=== PATIENT | female | born 1955 | race Caucasian/White ===

== ENCOUNTER → 2018-05-02 08:36 | Outpatient (REF) | payer BC, SELFPAY ==
[2018-05-02 14:07] LABS: ALT 61 U/L (12-78); AST 49 U/L (15-37); Albumin 3.7 g/dL (3.4-5.0); Alkaline Phosphatase 100 U/L (46-116); Anion Gap 5.5 mmol/L (3-11); BUN 15 mg/dL (7-18); Bilirubin, Total 0.6 mg/dL (0.2-1.0); CO2 29.5 mmol/L (21.0-32.0); CREATININE 0.77 mg/dL (0.55-1.02); Calcium 8.8 mg/dL (8.5-10.1); Chloride 105 mmol/L (98-107); Glucose 87 mg/dL (70-100); Potassium 4.4 mmol/L (3.5-5.1); Sodium 140 mmol/L (136-145); TSH (W/Ref FT4) 2.57 uIU/mL (0.358-3.74)
== END ==
LOC: NCHCN 08:36
PROVIDERS: PCP Nurse Practitioner Family; Visit Provider Nurse Practitioner Family
DX: E03.9 Hypothyroidism, unspecified (principal); I10 Essential (primary) hypertension
CPT/HCPCS: 80053; 84443

== ENCOUNTER 2018-11-10 09:40 | Outpatient (CLI) | payer BC, SELFPAY ==
[2018-11-10 11:38] LABS: Cholesterol 168 mg/dL (50-200); HDL Cholesterol 71 mg/dL (40-60); LDL CHOLESTEROL 82 mg/dL (<100); Triglyceride 65 mg/dL (30-150)
== END 2018-11-10 10:00 ==
PROVIDERS: PCP Nurse Practitioner Family; Visit Provider Internal Medicine Cardiovascular Disease
DX: I25.10 Atherosclerotic heart disease of native coronary artery without angina pectoris (principal)
CPT/HCPCS: 36415; 80061; 83721

== ENCOUNTER 2019-06-04 00:31 | Outpatient (CLI) | payer BC, SELFPAY ==
--- NOTE | 2019-06-04 16:06 | DI.MAMMO_ITS ---
EXAM: MG MAMMO SCREENING CLINICAL HISTORY: SCREENING, Z12.31. TECHNIQUE: Mammograms were interpreted according to the usual protocol including computer analysis w Replise CAD system, tomosynthesis and C-view imaging. COMPARISON: Comparison with prior examinations. FINDINGS: The breast tissue is of moderate radiodensity. There is no evidence of a mass and there are no suspic ious calcifications. There has been no significant interval change when compared with prior images. IMPRESSION: No evidence of malignancy, Category 1, yearly screening mammography is recommended. Breast density Ca tegory B. BI-RADS Cat 1 - Negative Breast Density - Category B - Scattered areas of fibroglandular density
== END 2019-06-04 00:51 ==
PROVIDERS: PCP Nurse Practitioner Family; Visit Provider Nurse Practitioner Family
DX: Z12.31 Encounter for screening mammogram for malignant neoplasm of breast (principal)
CPT/HCPCS: 77063; 77067

== ENCOUNTER 2019-08-06 09:00 | Outpatient (REF) | payer BC, SELFPAY ==
[2019-08-06 14:02] LABS: ALT 80 U/L (14-59); AST 74 U/L (15-37); Albumin 3.9 g/dL (3.4-5.0); Alkaline Phosphatase 104 U/L (46-116); Anion Gap 7.2 mmol/L (3-11); BUN 12 mg/dL (7-18); Bilirubin, Total 0.6 mg/dL (0.2-1.0); CO2 28.8 mmol/L (21.0-32.0); Calculated LDL 81 mg/dL; Chloride 106 mmol/L (98-107); Cholesterol 175 mg/dL (<200); Glucose 92 mg/dL (74-106); HDL Cholesterol 87 mg/dL (40-60); Potassium 4.1 mmol/L (3.5-5.1); Sodium 142 mmol/L (136-145); Total Protein 7.2 g/dL (6.4-8.2); Triglyceride 37 mg/dL (<150)
[2019-08-06 14:23] LABS: HCT 42.9 % (36.0-46.0); HGB 14.3 g/dL (12.0-15.5); Mean Corp. HGB Concentration 33.3 g/dL (32.0-36.0); Mean Corpuscular Volume 99.1 fL (80-95); Platelet Count 264 x1000/uL (130-400); RBC 4.33 m/cumm (4.00-5.20); RBC Distribution Width 12.5 % (11.7-14.6); White Blood Cell Count 4.62 k/cumm (4.4-10.8)
[2019-08-06 14:33] LABS: PROTEIN 18.5 mg/dL
[2019-08-06 14:36] LABS: COMMENT (LAB VIEW ONLY) 117.01 mg/dL; Microalb ug/mg Crea 15.3 ug/mg Cr
[2019-08-06 14:39] LABS: Bacteria Moderate HPF (Negative); C & S Indicated? No/Sq. Contamination; Crystals Few Calcium Oxalate HPF (Negative); Epithelial Cells Moderate HPF (Negative); Mucus Trace (Negative)
[2019-08-06 14:42] LABS: COMMENT (LAB VIEW ONLY) 115.32 mg/dL; Prot/Crea Ur Ratio 0.16
[2019-08-06 14:47] LABS: TSH (W/Ref FT4) 3.11 uIU/mL (0.36-3.74)
== END 2019-08-06 09:20 ==
LOC: NCHCN 09:00
PROVIDERS: PCP Nurse Practitioner Family; Visit Provider Nurse Practitioner Family
DX: Z00.00 Encounter for general adult medical examination without abnormal findings (principal); I25.10 Atherosclerotic heart disease of native coronary artery without angina pectoris; E03.9 Hypothyroidism, unspecified; I10 Essential (primary) hypertension
CPT/HCPCS: 80053; 80061; 85027; 81015; 82043; 82565; 82570; 84156; 84443

== ENCOUNTER 2020-04-29 08:13 | Outpatient (REF) | payer BC, SELFPAY ==
[2020-04-29 20:01] LABS: Calculated LDL 80 mg/dL (<100); Cholesterol 171 mg/dL (<200); HDL Cholesterol 82 mg/dL (40-60); Triglyceride 46 mg/dL (<150)
== END 2020-04-29 08:33 ==
LOC: NCHCN 08:13
PROVIDERS: PCP Nurse Practitioner Family; Visit Provider Nurse Practitioner Family
DX: I25.10 Atherosclerotic heart disease of native coronary artery without angina pectoris (principal)
CPT/HCPCS: 80061

== ENCOUNTER 2020-07-11 13:36 | Outpatient (REF) | payer BC, SELFPAY ==
[2020-07-11 20:13] LABS: Bilirubin Negative (Negative); Blood Negative (Negative); Clarity Clear (Clear); Glucose Negative (Negative); Ketones Negative (Negative); Leukocyte Esterase Trace (Negative); Nitrite Negative (Negative); Specific Gravity 1.025 (1.005-1.025)
[2020-07-11 20:17] LABS: Creatinine,Urine 107.09 mg/dL; PROTEIN 17.2 mg/dL
[2020-07-11 20:18] LABS: COMMENT (LAB VIEW ONLY) 108.12 mg/dL; Microalb ug/mg Crea 29.8 ug/mg Cr
[2020-07-11 20:30] LABS: COMMENT (LAB VIEW ONLY) 108.92 mg/dL; Prot/Crea Ur Ratio 0.15
[2020-07-11 20:32] LABS: BUN 11 mg/dL (7-18); Calcium 8.8 mg/dL (8.5-10.1); Chloride 105 mmol/L (98-107); Glucose 89 mg/dL (74-106); Sodium 141 mmol/L (136-145); TSH (W/Ref FT4) 2.67 uIU/mL (0.36-3.74)
[2020-07-11 20:37] LABS: Bacteria Few HPF (Negative); C & S Indicated? C&S Done As Ordered; Casts Negative LPF (Negative); Crystals Negative HPF (Negative); Epithelial Cells Few HPF (Negative); Mucus Trace (Negative)
== END 2020-07-11 13:56 ==
LOC: NCHCN 13:36
PROVIDERS: PCP Nurse Practitioner Family; Visit Provider Nurse Practitioner Family
DX: I10 Essential (primary) hypertension (principal); R35.0 Frequency of micturition
CPT/HCPCS: 80048; 81003; 81015; 82043; 82565; 82570; 84156; 84443; 87086

== ENCOUNTER 2020-07-14 02:18 | Outpatient (CLI) | payer BC, SELFPAY ==
--- NOTE | 2020-07-14 | DI.US_ITS ---
EXAM: US RENAL CLINICAL HISTORY: RECURRENT NEPHROLITHIASIS,N20.0,LT HYDRONEPHROSIS,N13.30. TECHNIQUE: Arambula scale, color and spectral Doppler were used. COMPARISON: No exams were available for comparison FINDINGS: Renal size in cm: Right: 11.3. Left: 9.4. Echogenicity: Normal. Hydronephrosis: No. Cyst or mass: No. Nephrolithiasis: Nonobstructing stones are present in the left kidney. The largest measures 0.5 cm. Other findings: None. Bladder:Normal. Ureteral jets: Right: Visualized and unremarkable. Left: Visualized and unremarkable. Prevoid vol:66 cc Postvoid vol:1 cc Renal color flow: Symmetric and within normal limits. IMPRESSION: Left nephrolithiasis. No hydronephrosis. DATA REPOSITORY:
== END 2020-07-14 02:38 ==
PROVIDERS: PCP Nurse Practitioner Family; Visit Provider Nurse Practitioner Family
DX: N20.0 Calculus of kidney (principal)
CPT/HCPCS: 76770

== ENCOUNTER 2020-08-01 18:22 | Outpatient (REF) | payer BC, SELFPAY ==
[2020-08-04 09:30] LABS: Patient Race White; SARS-CoV-2 RNA Undetected (Undetected); SARS-CoV-2 Specimen Source Nasal
== END 2020-08-01 18:42 ==
LOC: NCHCN 18:22
PROVIDERS: PCP Nurse Practitioner Family; Visit Provider Nurse Practitioner Family
DX: Z20.828 Contact with and (suspected) exposure to other viral communicable diseases (principal)
CPT/HCPCS: U0003

== ENCOUNTER 2020-10-13 11:43 | Outpatient (REF) | payer BC, SELFPAY ==
[2020-10-13 14:24] LABS: Calculated LDL 63 mg/dL (<100); Cholesterol 157 mg/dL (<200); HDL Cholesterol 82 mg/dL (40-60); Triglyceride 61 mg/dL (<150)
== END 2020-10-13 12:03 ==
LOC: NCHCN 11:43
PROVIDERS: PCP Nurse Practitioner Family; Visit Provider Nurse Practitioner Family
DX: I25.10 Atherosclerotic heart disease of native coronary artery without angina pectoris (principal)
CPT/HCPCS: 80061

== ENCOUNTER 2021-01-26 06:32 | Day surgery (SDC) | payer BC, SELFPAY ==
--- NOTE | 2021-01-26 06:12 | ANES.PREOP_ITS ---
General Info Date of Service Date Performed: 01/26/21 Height: 5 ft 8 in Weight: 71.668 kg Body Mass Index (BMI): 24.0 Surgical Procedure: Operation Date: 01/26/21 07:40 Proposed Procedures Side Surgeon p Intraocular Stent Placement/IOL Implant Right Babatunde Montoya MD Meds Allergies and Home Medications Allergies Allergy/AdvReac Type Severity Reaction Status Date / Time No Known Allergies Allergy Unverified 01/26/21 06:54 Home Medication Medication Instructions Recorded levalbuterol tartrate [Xopenex HFA] 2 puff INHALATION PRN 05/30/14 levothyroxine [Synthroid] 25 mcg PO DAILY 05/30/14 aspirin [Aspir-81] 81 mg PO DAILY tab-cap 10/25/16 atorvastatin [Lipitor] 80 mg PO DAILY tab-cap 10/25/16 lisinopril 10 mg PO DAILY tab-cap 10/25/16 nitroglycerin [Nitrostat] 0.4 mg BUCCAL PRN tab-cap 10/25/16 budesonide-formoterol [Symbicort] 2 puff INHALATION BID 01/21/21 ezetimibe 10 mg PO DAILY 01/21/21 latanoprost 1 drp OPHTHALMIC (EYE) HS 01/21/21 losartan 50 mg PO DAILY 01/21/21 [facility] Medical History Medical History Allergic asthma with acute exacerbation Controlled moderate persistent allergic asthma Coronary artery disease f/u with cardiology regularly 10/2020 last visit Glaucoma HTN (hypertension) Hydronephrosis, left Hypothyroidism Recurrent nephrolithiasis Urinary frequency Surgical History Surgical History (Updated 01/26/21 @ 06:54 by Caroline Borden) Colonoscopy - IV Sedation (12/21/16) Coronary Stent 2015 Hx of cataract surgery Kidney Stone Extraction Tobacco Smoking/Tobacco Use Status: Former Tobacco Use Alcohol Alcohol Intake: current Alcohol intake frequency: holidays/special occasions only Substance Use Substance use: Never Substance use type: does not use Vital Signs and Lab Results Vital Signs Most Recent Vital Signs in EMR: Temp Pulse Resp BP Pulse Ox 37.1 C 83 16 149/81 H 99 01/26/21 06:59 01/26/21 06:59 01/26/21 06:59 01/26/21 06:59 05/17/21 06:59 Lab Results Blood Type / Crossmatch: No Data to Display Complete Blood Count: No Data to Display Complete Metabolic Panel: No Data to Display Liver Function Panel: No Data to Display Coagulation Panel: No Data to Display Cardiac Panel: No Data to Display Arterial Blood Gas: No Data to Display Venous Blood Gas: No Data to Display Pancreas Panel: No Data to Display Thyroid Panel: No Data to Display Infectious Disease: No Data to Display Blood Cultures: No Data to Display Toxicology Panel: No Data to Display Imaging and Studies Imaging and Studies Pulmonary Function Summary: 2013: Severe obstructive airways disease with no significant bronchodilator response. There is mild diffusion defect which is normal when corrected to alveolar volume. Anesthesia Assessment and Plan Anesthesia History Personal History: No History of Anesthesia Complications Family History: No Family History of Anesthesia Complications Exercise Tolerance Exercise Tolerance: Metabolic Equivalents>4 Cardiac & Pulmonary Exam Cardiac Exam: Normal S1/S2 Heart Sounds Pulmonary Exam: Clear Bilateral Breath Sounds Airway Exam Known Difficult Airway: No Mallampati Class: 2 Mouth Opening: Normal (> 3cm) Thyromental Distance: Greater than 3 cm Neck Range of Motion: Full ROM Neck Circumference: Normal Teeth Condition: Normal Dentition ASA Classification ASA Score: ASA 3 Emergency Case?: No NPO Status NPO Status: NPO Clears >2 hours, Solids >8 hours Anesthesia Plan Resuscitation Status: Full Code Anesthesia Technique: MAC Anesthesia Airway Planned: Natural Airway Monitors Used: Standard Monitors Preoperative Comments:: history of 2 stent placements ~ 10 years ago. no issues since, unable to find.
[2021-01-26] MEDS: Tropicam./Phenyleph. (1/2.5%) 5 ML BTL OP ×3 (06:53→07:06)
[2021-01-26 06:59] VITALS: BP 149/81; PULSE 83; RESP 16; TEMP 37.1; O2SAT 99
[2021-01-26 07:17] VITALS: BMI 24.0
[2021-01-26] MEDS: Lidocaine 1% Pres-Free 5 ML VIAL (07:35)
[2021-01-26] MEDS: Balanced Salt Soln.-PLUS 500 ML BAG (07:35)
[2021-01-26] MEDS: Lidocaine 2% Jelly 6 ML SYR (07:36)
[2021-01-26] MEDS: Povidone-Iodine Ophth 30 ML BTL (07:37)
[2021-01-26] MEDS: Duovisc Viscoelastic System EACH 1 EACH (07:37)
[2021-01-26] MEDS: Tetracaine 0.5% 4 ML BTL OP (07:38)
[2021-01-26 08:00] VITALS: BP 142/79; PULSE 77; RESP 18; TEMP 36.8; O2SAT 96
--- NOTE | 2021-01-26 08:34 | W.ANESPOSTOP ---
Postoperative Evaluation Date, Time and Location Date Performed: 01/26/21 Time Performed: 08:16 Patient Location: Day Surgery Unit Vital Signs Most Recent Imported Vital Signs: Most Recent Vital Signs Temp Pulse Resp BP Pulse Ox 37.1 C 83 16 149/81 H 99 01/26/21 06:59 01/26/21 06:59 01/26/21 06:59 01/26/21 06:59 01/26/21 06:59 Most Recent Manually Entered Vital Signs: Adult Blood Pressure: 135/82 Heart Rate: 82 Respirations: 11 Oxygen Saturation (%): 96 Temperature (C): 36.8 C Pain Score (0-10 Scale): 0 Pain Score Most Recent Pain Score: Most Recent Pain Score Pain Level 0 01/26/21 06:59 Assessment Mental Status: Awake (Alert & Oriented to Patient Baseline) Airway and Respiratory Function: Patent airway with normal (patient baseline) respiratory exam Cardiovascular Function: Hemodynamically Stable Hydration Status: Adequately Hydrated Nausea & Vomiting: No Nausea or Vomiting Pain: Pt. Denies Any Pain Peripheral Nerve Block: Patient did not receive a nerve block
[2021-01-26 08:36] VITALS: BP 135/82; PULSE 82; RESP 11; TEMPC 36.8; O2SAT 96
[2021-01-26 09:44] VITALS: BP 147/79; PULSE 76; RESP 18; TEMP 36.7; O2SAT 98
--- NOTE | 2021-01-26 11:54 | W.PM.DSUDISC ---
Discharge Plan Disposition Patient Disposition: HOME Condition: Improving Discharge Details Attending Provider: Babatunde Montoya Primary Care Provider: Ramos Queen Home Meds and New Rx's Prescriptions: No Action atorvastatin [Lipitor] 80 MG tablet 80 mg PO DAILY RF: 0 aspirin [Aspir-81] 81 MG tablet,delayed release (DR/EC) 81 mg PO DAILY RF: 0 lisinopril 10 MG tablet 10 mg PO DAILY RF: 0 nitroglycerin [Nitrostat] 0.4 MG tablet, sublingual 0.4 mg Buccal PRN RF: 0 levothyroxine [Synthroid] 25 MCG tablet 25 mcg PO DAILY RF: 0 levalbuterol tartrate [Xopenex HFA] 200 PUFF HFA aerosol inhaler 2 puff Inhalation PRN RF: 0 losartan 50 mg tablet 50 mg PO DAILY RF: 0 ezetimibe 10 mg tablet 10 mg PO DAILY RF: 0 budesonide-formoterol [Symbicort] 160-4.5 mcg/actuation HFA aerosol inhaler 2 puff INHALATION BID RF: 0 latanoprost 0.005 % drops 1 drp ophthalmic (eye) HS RF: 0 Discharge Instructions Stand Alone Forms: Post-op Block Cataract, Post-op Topical Cataract, Press Ganey (DSU) Discharge Orders Discharge Orders: Discharge Order (Routine); Ordered 01/26/21 Ordered By: Babatunde Montoya DS: Diagnosis Discharge Diagnosis (1) Cortical cataract of right eye: Status: Acute (2) Nuclear sclerotic cataract of right eye: Status: Acute
--- NOTE | 2021-01-26 11:55 | ROE_ITS ---
Date of service: 01/26/21 Time of Service: 11:55 Operative Note Operative Note DATE OF PROCEDURE: 01/26/21 PRE-OP DIAGNOSIS: Nuclear/cortical cataract, right eye History of narrow angles, status post laser iridotomy Narrow angle glaucoma, right eye POST-OP DIAGNOSIS: same PROCEDURE: Cataract extraction using phacoemulsification, right eye Procedure aborted prior to cortical cleanup due to flat chamber/elevated intraocular pressure. SURGEON: Babatunde Montoya ANESTHESIA TYPE: Local By Surgeon and MAC Refer to Anesthesia Record ESTIMATED BLOOD LOSS: 0 PATHOLOGY: none sent COMPLICATIONS: Other (Development of flat anterior chamber with elevated posterior pressure prior to cortical cleanup. Procedure was aborted prior to cortical cleanup and lens insertion.) Patient was transported to: same day Patient's condition: stable Implants: No intraocular lens implant placed Indications: Progressive decreased vision due to cataract, right eye Procedure Description: CATARACT SURGERY OPERATIVE REPORT PREOPERATIVE DIAGNOSIS: Nuclear/cortical cataract, right eye History of narrow angle glaucoma, status post laser peripheral iridotomy History of elevated intraocular pressure in the 30s, prior to laser iridotomy and topical glaucoma medications, right eye POSTOPERATIVE DIAGNOSIS: Same OPERATION: Cataract extraction using phacoemulsification with posterior chamber intraocular lens implant, right eye. IOL: No IOL was placed PHACO INFO: Noah [employer]ion Vision System with OZil and Active Fluidics Cumulative Dispersed Energy (CDE): 6.86 seconds SURGEON: Babatunde Montoya MD, RELL ANESTHESIA: Monitored Anesthesia Care (MAC), with local sub-tenon's anesthetic infiltration COMPLICATIONS: Severe elevation of posterior pressure/intraocular pressure with development of flat chamber prior to cortical cleanup. Procedure was aborted SPECIMENS: None INDICATIONS FOR PROCEDURE: The patient is a 65-year-old lady with history of narrow anterior chamber angles and significant elevated intraocular pressure in the right eye. Untreated intraocular pressure in the right eye in the mid 30s. Following laser iridotomy and topical glaucoma medications intraocular pressure has been significantly better, in the low 20s. She has very thin central corneas. She has previously undergone cataract extraction with lens implantation in the left eye in 2019 in [place]. That eye is doing very well. The option of cataract surgery in the right eye was offered to the patient and she wished to proceed. In addition, the option of trabecular micro-bypass stent placement at the time of cataract surgery was offered to the patient and she wished to proceed. PROCEDURE: The correct surgical eye was identified and marked as the right eye and the pupil was dilated in the preoperative area using mydriatics and cycloplegics. The dilated pupil size was 6.5 mm. Oral sedation was administered in the form of an Imprimis MKO Melt (midazolam 3mg/ketamine 25mg/ondansetron 2mg). The patient was brought to the operating room where cardiopulmonary monitoring was instituted and surgical time-out was performed, confirming the correct operative eye and IOL power. Topical anesthesia was administered and ophthalmic povidone-iodine 5% was instilled into the conjunctival fornices. Lidocaine gel was applied to the cornea and the caity-ocular area was prepped with Betadine 10% solution and draped in the usual sterile fashion for intraocular surgery, including an aperture drape. A Tegaderm transparent film dressing was cut in half and used to cover the lashes and lid margins. Care was taken to sequester the lashes and lid margins under the Tegaderm dressing. A lid speculum was placed between the lids of the operative eye and the Judson-Dinesh operating microscope was maneuvered into position. Paty scissors were then used to make a conjunctival buttonhole approximately 6mm posterior to the limbus in the inferonasal quadrant. Blunt dissection was carried out to expose bare sclera, and a blunt-tipped sub-tenon?s anesthesia cannula was introduced and passed posteriorly along the globe where non- preserved plain lidocaine was injected into posterior sub-Tenon?s space. A sideport knife was used to make a paracentesis port inferiortemporally. Intraocular phenylephrine/lidocaine was injected into the anterior chamber. The anterior chamber was then filled with viscoelastic. Noah Viscoat was used, which resulted in adequate deepening of the shallow anterior chamber. A 2.4mm keratome knife was used to create a half-thickness groove at the limbus and then to construct a three-plane near-clear corneal tunnel extending 2.0mm into clear cornea in the superiortemporal position. . A flap was raised on the anterior capsule and capsulorhexis forceps were used to complete a continuous curvilinear capsulorhexis of 5.0 mm. Balanced salt solution was then used to perform cortical cleaving hydrodissection and nuclear hydrodelineation until the lens could be freely rotated within the capsular bag. The lens nucleus was then disassembled and removed within the capsular bag and iris plane using phacoemulsification. Phacoemulsification was uneventful and the anterior chamber was noted to be of adequate depth. When switching to the irrigation/aspiration handpiece for cortical cleanup, it was noted that the anterior chamber was becoming increasingly shallow and the eye was becoming firm. Insertion of the eye/a handpiece did not result in any deepening of the anterior chamber. The wounds were stromally hydrated and found to be secure. We waited several minutes, but the eye remained very firm with a shallow anterior chamber. The decision was made to abort surgery prior to cortical cleanup and insertion of lens implant. 0.1 cc of moxifloxacin 1.0 mg/mL were injected into the anterior chamber for antibiotic prophylaxis. The incisions were checked with a Weck spear and found to be secure. Several drops of ophthalmic povidone-iodine 5% were then applied to the eye followed by two drops of Imprimis combination prednisolone/moxifloxacin/nepafenac solution. The drapes were removed and a clear plastic protective eye shield was placed over the eye. The patient was then returned to Same Day Surgery, where an infusion of IV mannitol was begun. Intraocular pressure measured 32 iCare initially at 8:16am. .. After mannitol 50 g IV intraocular pressure measured 49 at 9:30 am.. Another 50 g of mannitol were then infused over the next hour, after which the intraocular pressure remained at 40-49 at 10:18am. Approximately 45 minutes later the intraocular pressure was 4ad 10:59am, and approximately 45 minutes after that the intraocular pressure had reduced to 41 at 11:50am.. It was determined at that point due to the reducing trend of intraocular pressure it was safe to release the patient, but she will follow-up in the office in approximately 4 hours for reevaluation.
[2021-01-26 12:02] VITALS: BP 136/82; PULSE 65; RESP 18; TEMP 36.6; O2SAT 98
== END 2021-01-26 12:30 | disposition home or self-care (01) ==
PROVIDERS: PCP Nurse Practitioner Family; Visit Provider Ophthalmology
PROC: (CPT 66984; principal; 2021-01-26 07:30)
DX: H25.11 Age-related nuclear cataract, right eye (principal); Z53.09 Procedure and treatment not carried out because of other contraindication; H40.051 Ocular hypertension, right eye
CPT/HCPCS: 66984; 96365; 96366

== ENCOUNTER 2021-03-23 19:03 | Outpatient (REF) | payer BC, SELFPAY ==
[2021-03-25 14:14] LABS: COVID-19 RT-PCR UVMMC Result Negative (Negative)
== END 2021-03-23 19:04 | disposition home or self-care (01) ==
LOC: NCHCN 19:03
PROVIDERS: PCP Nurse Practitioner Family; Visit Provider Nurse Practitioner Family
DX: J06.9 Acute upper respiratory infection, unspecified (principal); Z20.822 Contact with and (suspected) exposure to COVID-19
CPT/HCPCS: U0003

== ENCOUNTER 2021-04-29 08:20 | Outpatient (REF) | payer BC, SELFPAY ==
[2021-04-29 14:23] LABS: Calculated LDL 59 mg/dL (<100); Cholesterol 150 mg/dL (<200); HDL Cholesterol 83 mg/dL (40-60); Triglyceride 41 mg/dL (<150)
== END 2021-04-29 08:21 | disposition home or self-care (01) ==
LOC: LBN 08:20
PROVIDERS: PCP Nurse Practitioner Family; Visit Provider Physician Assistant
DX: I25.10 Atherosclerotic heart disease of native coronary artery without angina pectoris (principal)
CPT/HCPCS: 80061

== ENCOUNTER 2021-06-17 01:03 | Outpatient (CLI) | payer BC, SELFPAY ==
--- NOTE | 2021-06-17 | DI.MAMMO_ITS ---
Exam(s) MAMMO SCREENING EXAM: MAMMO SCREENING CLINICAL HISTORY: SCREENING, Z12.31 TECHNIQUE: Bilateral full field digital CC and MLO mammographic images were obtained with 3D tomosyn thesis and utilizing computer aided detection (CAD). COMPARISON: Available for comparison. FINDINGS: Masses/Architectural Distortion: None seen. Microcalcifications: No suspicious pleomorphic-type are seen. Skin Thickening/Nipple Retraction: None. IMPRESSION: 1. No significant interval change with no specific features of malignancy noted. 2. Unless there is more urgent need, screening mammography is recommended, as per [employer] guidelines. BI-RADS Category 1 - Negative Breast Density - Category B - Scattered areas of fibroglandular density Breast density category C or D implies that the patient has dense breast tissue. Dense breast tissue is very common and is not abnormal but dense breast tissue can make it harder to find cancer on a ma mmogram. Also, dense breast tissue may increase their breast cancer risk. This information about the result of the mammogram report was provided to the patient to raise their awareness. Use this report when you speak with the patient about their risks for breast cancer, which includes their family hist ory. At that time, you may recommend for more screening tests (Ultrasound or MRI) as they might be us eful based on their risk. A negative radiographic report should not delay biopsy if a dominant or clinically suspicious mass is present. Up to ten percent of cancers are not identified on mammography. A negative report may reinforce clinical impression. Adenosis and dense breasts may obscure an underlying neoplasm. False positive reports average 6 to 10%. Patient will receive a letter notifying them of these results.
== END 2021-06-17 01:04 | disposition home or self-care (01) ==
LOC: DI 04:15 → LBN 18:41
PROVIDERS: PCP Physician Assistant; Visit Provider Physician Assistant
DX: Z12.31 Encounter for screening mammogram for malignant neoplasm of breast (principal)
CPT/HCPCS: 77063; 77067

== ENCOUNTER 2021-11-10 19:08 | Outpatient (REF) | payer BC, SELFPAY ==
[2021-11-10 20:42] LABS: Abs Immature Grans 0.02 10^3/uL (0.0-0.06); Absolute Basophil Count 0.02 10^3/uL (0.0-0.2); Absolute Eosinophil Count 0.05 10^3/uL (0.0-0.7); Absolute Lymphocyte Count 1.86 10^3/uL (1.2-3.4); Absolute Monocyte Count 0.41 10^3/uL (0.1-0.8); Absolute Neutrophil Count 3.89 10^3/uL (1.2-6.7); Basophils % 0.3; Eosinophils % 0.8; HGB 13.7 g/dL (11.2-15.7); Immature Grans % 0.3; Lymphocytes % 29.8; MCH 32.7 pg (27.0-33.0); MCHC 33.4 % (32.0-36.0); MCV 97.9 fL (80-95); MPV 8.8 fL (8.0-11.0); Monocytes % 6.6; Neutrophils % 62.2; Nucleated RBC 0 %; Platelet Count 260 10^3/uL (130-400); RBC 4.19 10^6/uL (3.93-5.22); RDW 12.3 % (11.7-14.6); RDW-SD 44.5 fL; WBC 6.25 10^3/uL (4.4-10.8)
[2021-11-13 10:05] LABS: IgE <2 IU/mL (<158)
== END 2021-11-10 19:09 | disposition home or self-care (01) ==
LOC: LBN 19:08
PROVIDERS: Visit Provider Student in an Organized Health Care Education/Training Program
DX: J45.909 Unspecified asthma, uncomplicated (principal)
CPT/HCPCS: 82785; 85025

== ENCOUNTER 2021-11-17 18:03 | Outpatient (REF) | payer BC, SELFPAY ==
--- NOTE | 2021-11-17 15:47 | PAPFT_PTH ---
PATIENT: Rebecca Carlson LOC: [facility]#:[id number] AGE/SX: 66/F ROOM: RE11/17/[address]: Shawn Stein : 1955 BED: DIS: 11/17/2021 SPEC #: [id number] RECD: 11/17/21 18:14 STATUS: JHON REQ #: [id number] SAHARA: 11/17/21 15:[address]: Shawn Stein DEPT: [facility] Cytology RECD BY: Leanna Mccarthy ENTERED: 11/17/21 18:14 SP TYPE: PAPFT ORDNEY DR: Unknown,Unknown Tissues: 1 - CX/ENDOCX FOR PAP SMEARS Procedures: PAP THIN PREP/[facility] Screening HPV DNA PROBE Comments: [id number]
== END 2021-11-17 18:04 | disposition home or self-care (01) ==
LOC: NCHCN 18:03
PROVIDERS: Visit Provider Physician Assistant
DX: Z12.4 Encounter for screening for malignant neoplasm of cervix (principal); Z11.51 Encounter for screening for human papillomavirus (HPV)
CPT/HCPCS: 88142; 87624

== ENCOUNTER 2021-12-09 01:41 | Outpatient (CLI) | payer BC, SELFPAY ==
--- NOTE | 2021-12-09 14:30 | DI.DEXA_ITS ---
Exam(s) XR DEXA BONE DENSITY W/WO STEFANIE EXAM: XR DEXA BONE DENSITY W/WO STEFANIE CLINICAL HISTORY: OSTEOPENIA, M85.80, F/U 2017 DEXA TECHNIQUE: COMPARISON: No exams were available for comparison FINDINGS: DEXA scan was performed according to the usual protocol. Please see the accompanying data sheets. F indings for left hip scanning are T-score -2.1 with left femoral neck T-score -2.8. Prior examinatio n of 2017 showed left hip T-score -1.2. Lumbar spine scanning shows T-score -1.3, prior examination of 2017 showed lumbar T-score -1.0. Left forearm scanning shows T-score -3.9, prior examination showed T-score -2.7. Lateral vertebral scanogram shows no evidence of vertebral compression fracture. IMPRESSION: Findings consistent with osteoporosis according to the WHO criteria. RADIATION DOSE DELIVERED: Total DLP
== END 2021-12-09 02:01 ==
PROVIDERS: Visit Provider Physician Assistant
DX: Z13.820 Encounter for screening for osteoporosis (principal); M81.0 Age-related osteoporosis without current pathological fracture
CPT/HCPCS: 77080

== ENCOUNTER 2022-05-14 08:11 | Outpatient (REF) | payer BC, SELFPAY ==
[2022-05-14 18:03] LABS: Anion Gap 7.2 mmol/L (3-11); BUN 11 mg/dL (7-18); CO2 28.8 mmol/L (21.0-32.0); CREATININE 0.7 mg/dL (0.55-1.02); Calcium 8.6 mg/dL (8.5-10.1); Calculated LDL 63 mg/dL (<100); Chloride 109 mmol/L (98-107); Cholesterol 149 mg/dL (<200); Estimated GFR 95.32 (mL/min/1.73m2); Glucose 97 mg/dL (74-106); HDL Cholesterol 75 mg/dL (40-60); Potassium 4.2 mmol/L (3.5-5.1); Sodium 145 mmol/L (136-145); TSH 2.95 uIU/mL (0.36-3.74); Triglyceride 58 mg/dL (<150)
== END 2022-05-14 08:12 | disposition home or self-care (01) ==
LOC: NCHCN 08:11
PROVIDERS: Visit Provider Physician Assistant
DX: E03.9 Hypothyroidism, unspecified (principal); I10 Essential (primary) hypertension; I25.10 Atherosclerotic heart disease of native coronary artery without angina pectoris
CPT/HCPCS: 80048; 80061; 84443

== ENCOUNTER → 2022-08-18 02:14 | Outpatient (CLI) | payer BC, SELFPAY ==
--- NOTE | 2022-08-18 18:00 | DI.MAMMO_ITS ---
Exam(s) MAMMO SCREENING EXAM: MAMMO SCREENING CLINICAL HISTORY: SCREENING, Z12.39 TECHNIQUE: Bilateral full field digital CC and MLO mammographic images were obtained with 3D tomosyn thesis and utilizing computer aided detection (CAD). COMPARISON: Available for comparison. FINDINGS: Masses/Architectural Distortion: None seen. Microcalcifications: No suspicious pleomorphic-type are seen. Skin Thickening/Nipple Retraction: None. IMPRESSION: 1. No significant interval change with no specific features of malignancy noted. 2. Unless there is more urgent need, screening mammography is recommended, as per [employer] guidelines. BI-RADS Category 1 - Negative Breast Density - Category B - Scattered areas of fibroglandular density Breast density category C or D implies that the patient has dense breast tissue. Dense breast tissue is very common and is not abnormal but dense breast tissue can make it harder to find cancer on a ma mmogram. Also, dense breast tissue may increase their breast cancer risk. This information about the result of the mammogram report was provided to the patient to raise their awareness. Use this report when you speak with the patient about their risks for breast cancer, which includes their family hist ory. At that time, you may recommend for more screening tests (Ultrasound or MRI) as they might be us eful based on their risk. A negative radiographic report should not delay biopsy if a dominant or clinically suspicious mass is present. Up to ten percent of cancers are not identified on mammography. A negative report may reinforce clinical impression. Adenosis and dense breasts may obscure an underlying neoplasm. False positive reports average 6 to 10%. Patient will receive a letter notifying them of these results.
== END ==
PROVIDERS: Visit Provider Physician Assistant
DX: Z12.31 Encounter for screening mammogram for malignant neoplasm of breast (principal)
CPT/HCPCS: 77063; 77067

== ENCOUNTER 2023-05-18 09:30 | Outpatient (REF) | payer BC, SELFPAY ==
[2023-05-18 16:06] LABS: AST 21 U/L (15-37); Albumin 3.5 g/dL (3.4-5.0); Alkaline Phosphatase 76 U/L (46-116); Anion Gap 5.8 mmol/L (3-11); BUN 14 mg/dL (7-18); Bilirubin, Total 0.7 mg/dL (0.2-1.0); CO2 30.2 mmol/L (21.0-32.0); CREATININE 0.9 mg/dL (0.55-1.02); Calcium 9.4 mg/dL (8.5-10.1); Calculated LDL 62 mg/dL (<100); Chloride 104 mmol/L (98-107); Cholesterol 152 mg/dL (<200); Estimated GFR 70.07 (mL/min/1.73m2); Glucose 105 mg/dL (74-106); HDL Cholesterol 82 mg/dL (40-60); Potassium 4.1 mmol/L (3.5-5.1); Sodium 140 mmol/L (136-145); TSH 3.26 uIU/mL (0.36-3.74); Total Protein 6.6 g/dL (6.4-8.2); Triglyceride 43 mg/dL (<150)
[2023-05-18 16:38] LABS: ALT 23 U/L (14-59)
== END 2023-05-18 09:31 | disposition home or self-care (01) ==
LOC: NCHCN 09:30
PROVIDERS: PCP Physician Assistant; Visit Provider Physician Assistant
DX: E03.9 Hypothyroidism, unspecified (principal); I25.10 Atherosclerotic heart disease of native coronary artery without angina pectoris
CPT/HCPCS: 80053; 80061; 84443

== ENCOUNTER 2023-06-21 16:46 | Outpatient (REF) | payer BC, SELFPAY ==
[2023-06-21 20:42] LABS: Source Nasal/Nares
[2023-06-21 21:28] LABS: COVID-19 PCR Negative (Negative)
== END 2023-06-21 16:47 | disposition home or self-care (01) ==
LOC: LBN 16:46
PROVIDERS: PCP Physician Assistant; Visit Provider Nurse Practitioner Family
DX: R05.8 Other specified cough (principal)
CPT/HCPCS: 87635

== ENCOUNTER → 2023-08-24 01:37 | Outpatient (CLI) | payer BC, SELFPAY ==
--- NOTE | 2023-08-24 16:20 | DI.MAMMO_ITS ---
Exam(s) MAMMO SCREENING EXAM: MAMMO SCREENING CLINICAL HISTORY: SCREENING MAMMO Z12.31 TECHNIQUE: Bilateral full field digital CC and MLO mammographic images were obtained with 3D tomosyn thesis and utilizing computer aided detection (CAD). COMPARISON: Available for comparison. FINDINGS: Masses/Architectural Distortion: There has been slight interval increase in size of a nodule in the i nferior right breast which now measures 3-4 mm. It is best appreciated on the MLO view. No areas of architectural distortion are seen. Microcalcifications: No suspicious pleomorphic-type are seen. Skin Thickening/Nipple Retraction: None. IMPRESSION: 1. Increase in size of a nodule in inferior right breast. 2. Follow-up with spot compression view is recommended. Limited right breast ultrasound may be indic ated at that time. BI-RADS Category 0 - Assessment Incomplete: Need additional imaging evaluation Breast Density - Category B - Scattered areas of fibroglandular density Breast density category C or D implies that the patient has dense breast tissue. Dense breast tissue is very common and is not abnormal but dense breast tissue can make it harder to find cancer on a ma mmogram. Also, dense breast tissue may increase their breast cancer risk. This information about the result of the mammogram report was provided to the patient to raise their awareness. Use this report when you speak with the patient about their risks for breast cancer, which includes their family hist ory. At that time, you may recommend for more screening tests (Ultrasound or MRI) as they might be us eful based on their risk. A negative radiographic report should not delay biopsy if a dominant or clinically suspicious mass is present. Up to ten percent of cancers are not identified on mammography. A negative report may reinforce clinical impression. Adenosis and dense breasts may obscure an underlying neoplasm. False positive reports average 6 to 10%. Patient will receive a letter notifying them of these results.
== END ==
PROVIDERS: PCP Physician Assistant; Visit Provider Physician Assistant
DX: Z12.31 Encounter for screening mammogram for malignant neoplasm of breast (principal); R92.8 Other abnormal and inconclusive findings on diagnostic imaging of breast
CPT/HCPCS: 77063; 77067

== ENCOUNTER → 2023-08-26 00:35 | Outpatient (CLI) | payer BC, SELFPAY ==
--- NOTE | 2023-08-26 | DI.MAMMO_ITS ---
Exam(s) MAMMO SCREEN CALL BACK UNI EXAM: MAMMO SCREEN CALL BACK UNI CLINICAL HISTORY: F/U MAMMO,INCREASE IN SIZE OF NODULE,R92.8 TECHNIQUE: Spot compression views with tomographic imaging were performed. COMPARISON: 24 August 2023 and exams back to 2013 FINDINGS: The area of nodularity in question on the recent mammogram corresponds to a skin mole.No suspicious m asses or suspicious microcalcifications are seen. IMPRESSION: BI-RADS Category 1, Negative Yearly screening mammography is recommended. Breast Density - Category B, scattered fibroglandular densities.
== END ==
PROVIDERS: PCP Physician Assistant; Visit Provider Physician Assistant
DX: Z12.31 Encounter for screening mammogram for malignant neoplasm of breast (principal); R92.8 Other abnormal and inconclusive findings on diagnostic imaging of breast
CPT/HCPCS: 77063; 77067

== ENCOUNTER 2024-05-21 13:05 | Outpatient (REF) | payer BC, SELFPAY ==
[2024-05-21 16:02] LABS: HCT 40.1 % (36.0-46.0); HGB 13.3 g/dL (11.2-15.7); MCH 33.2 pg (27.0-33.0); MCHC 33.2 % (32.0-36.0); MCV 100 fL (80-95); MPV 8.7 fL (8.0-11.0); Platelet Count 268 10^3/uL (130-400); RBC 4.01 10^6/uL (3.93-5.22); RDW 12.4 % (11.7-14.6); RDW-SD 45.8 fL; WBC 4.93 10^3/uL (4.4-10.8)
[2024-05-21 16:25] LABS: ALT 24 U/L (14-59); AST 28 U/L (15-37); Albumin 3.6 g/dL (3.4-5.0); Alkaline Phosphatase 71 U/L (46-116); Anion Gap 6.3 mmol/L (3-11); BUN 10 mg/dL (7-18); Bilirubin, Total 0.76 mg/dL (0.2-1.0); CO2 28.7 mmol/L (21.0-32.0); CREATININE 0.8 mg/dL (0.55-1.02); Calcium 8.7 mg/dL (8.5-10.1); Calculated LDL 65 mg/dL (<100); Chloride 106 mmol/L (98-107); Cholesterol 165 mg/dL (<200); Estimated GFR 80.21 (mL/min/1.73m2); Glucose 93 mg/dL (74-106); HDL Cholesterol 88 mg/dL (40-60); Potassium 4.2 mmol/L (3.5-5.1); Sodium 141 mmol/L (136-145); TSH 2.32 uIU/Ml (0.36-3.74); Total Protein 6.5 g/dL (6.4-8.2); Triglyceride 61 mg/dL (<150)
== END 2024-05-21 13:06 | disposition home or self-care (01) ==
LOC: NCHCN 13:05
PROVIDERS: PCP Physician Assistant; Visit Provider Physician Assistant
DX: E03.9 Hypothyroidism, unspecified (principal); I10 Essential (primary) hypertension; I25.10 Atherosclerotic heart disease of native coronary artery without angina pectoris
CPT/HCPCS: 80053; 80061; 85027; 84443

== ENCOUNTER 2024-09-17 02:10 | Outpatient (CLI) | payer BC, SELFPAY ==
--- NOTE | 2024-09-17 08:15 | DI.MAMMO_ITS ---
Exam(s) MAMMO SCREENING EXAM: MAMMO SCREENING CLINICAL HISTORY: SCREENING, Z12.31 TECHNIQUE: Bilateral full field digital CC and MLO mammographic images were obtained with 3D tomosyn thesis and utilizing computer aided detection (CAD). COMPARISON: Available for comparison. FINDINGS: Masses/Architectural Distortion: Interval increase in size of a well-circumscribed nodule in the medi al right breast measuring 3-4 mm. No areas of architectural distortion are present. Microcalcifications: No suspicious pleomorphic-type are seen. Skin Thickening/Nipple Retraction: None. IMPRESSION: 1. Interval increase in size of a nodule in the medial right breast. 2. Spot-compression and targeted the right breast ultrasound is requested. BI-RADS Category 0 - Incomplete: Need additional imaging evaluation Breast Density - Category B - Scattered areas of fibroglandular density Breast density category C or D implies that the patient has dense breast tissue. Dense breast tissue is very common and is not abnormal but dense breast tissue can make it harder to find cancer on a ma mmogram. Also, dense breast tissue may increase their breast cancer risk. This information about the result of the mammogram report was provided to the patient to raise their awareness. Use this report when you speak with the patient about their risks for breast cancer, which includes their family hist ory. At that time, you may recommend for more screening tests (Ultrasound or MRI) as they might be us eful based on their risk. A negative radiographic report should not delay biopsy if a dominant or clinically suspicious mass is present. Up to ten percent of cancers are not identified on mammography. A negative report may reinforce clinical impression. Adenosis and dense breasts may obscure an underlying neoplasm. False positive reports average 6 to 10%. Patient will receive a letter notifying them of these results.
== END 2024-09-17 02:30 ==
LOC: DI 02:10
PROVIDERS: PCP Physician Assistant; Visit Provider Physician Assistant
DX: Z12.31 Encounter for screening mammogram for malignant neoplasm of breast (principal); R92.323 Mammographic fibroglandular density, bilateral breasts
CPT/HCPCS: 77063; 77067

== ENCOUNTER 2024-09-24 02:01 | Outpatient (CLI) | payer BC, SELFPAY ==
--- NOTE | 2024-09-24 09:50 | DI.MAMMO_ITS ---
Exam(s) MAMMO SCREEN CALL BACK UNI EXAM: MAMMO SCREEN CALL BACK UNI CLINICAL HISTORY: INCREASE SIZE NODULE RT BREAST R92.8 ABNL MAMMO TECHNIQUE: CC view was performed with mole marker in place. COMPARISON: 2016 through 17 September 2024 FINDINGS: No suspicious masses or suspicious microcalcifications are seen. A skin tag was marked in the lower inner quadrant of the right breast with a mole marker. This corre sponds to the area of nodularity questioned on the recent exam. IMPRESSION: BI-RADS Category 1, Negative Yearly screening mammography is recommended. Breast Density - Category B, scattered fibroglandular densities.
== END 2024-09-24 02:21 ==
LOC: DI 02:01
PROVIDERS: PCP Physician Assistant; Visit Provider Physician Assistant
DX: R92.8 Other abnormal and inconclusive findings on diagnostic imaging of breast (principal); Z12.31 Encounter for screening mammogram for malignant neoplasm of breast; R92.323 Mammographic fibroglandular density, bilateral breasts
CPT/HCPCS: 77063; 77067

== ENCOUNTER 2025-04-20 16:39 | Emergency (ER) | payer BC, SELFPAY ==
[2025-04-20 16:44] VITALS: BP 168/99; PULSE 52; RESP 16; TEMP 36.6; O2SAT 98
--- NOTE | 2025-04-20 17:00 | DI.RAD_ITS ---
Exam(s) XR WRIST RT COMPLETE EXAM: XR WRIST RT COMPLETE CLINICAL HISTORY: pain and swelling to volar aspect of wrist,. TECHNIQUE: 2D digital imaging was performed of the right wrist. Three views were obtained. PA, lateral and oblique views were obtained. COMPARISON: No exams were available for comparison FINDINGS: BONES: No acute fracture is present. No bony destructive lesion is seen. JOINTS: The carpal bones are normally aligned. There are mild degenerative changes seen at the 1st CMC joint. The articular surfaces are otherwise well maintained. SOFT TISSUE: Normal. IMPRESSION: There is no acute fracture or dislocation. DATA REPOSITORY: RADIATION DOSE DELIVERED:
--- NOTE | 2025-04-20 17:10 | W.ED.GENAD ---
Discharge Plan Disposition Patient Disposition: Home Condition: Good Discharge Details Clinical Impression: Right wrist pain, Elevated blood pressure reading Primary Care Provider: Shawn Stein ED Provider: Cathleen Becerril Home Meds and New Rx's Prescriptions: Continued alendronate 70 mg tablet 70 mg PO QWEEK atorvastatin [Lipitor] 80 MG tablet 80 mg PO DAILY aspirin [Aspir-81] 81 MG tablet,delayed release (DR/EC) 81 mg PO DAILY nitroglycerin [Nitrostat] 0.4 MG tablet, sublingual 0.4 mg Buccal PRN Trelegy Ellipta 200-62.5-25 mcg blister with device 1 inh inhalation DAILY Qty: 60 12RF levothyroxine [Synthroid] 25 MCG tablet 25 mcg PO DAILY levalbuterol tartrate [Xopenex HFA] 200 PUFF HFA aerosol inhaler 2 puff Inhalation PRN ezetimibe 10 mg tablet 10 mg PO DAILY Patient Comments: TAKE ONE TABLET BY MOUTH EVERY DAY latanoprost 0.005 % drops 1 drp ophthalmic (eye) HS Patient Comments: INSTILL 1 DROP INTO EACH EYE NIGHTLY lisinopril 20 mg tablet 20 mg PO DAILY Patient Comments: TAKE ONE TABLET BY MOUTH EVERY DAY brimonidine 0.2 % drops 1 drp ophthalmic (eye) BID Patient Comments: PLACE 1 DROP INTO THE RIGHT EYE TWO TIMES A DAY Discharge Instructions Additional Instructions: Please call your primary care provider Tuesday morning to schedule follow-up appointment to discuss your wrist pain and blood pressure Your blood pressure was elevated today. I recommend taking your blood pressure medications as prescribed. X-ray was unremarkable, no acute bony abnormalities were noted. Pain may be caused by a ganglion cyst or a tendinitis/overuse injury You may use Tylenol, ice, and Voltaren gel for discomfort. Rest your wrist as needed Return to emergency care if you develop new fever/chills, chest pain, difficulty breathing, episodes of feeling like you are going to pass out, increasing swelling/redness to your wrist, numbness in your fingers, or if you are very worried you need to be rechecked immediately Referrals: Shawn Stein [Primary Care Provider, Medicine] Discharge Data Discharge Date/Time-TO BE ENTERED AT DEPARTURE: 04/20/25 18:32 HPI General Date/Time Provider Initiated Documentation: 04/20/25 16:40. HPI Narrative: Rebecca is a 70-year-old female who presents to the emergency department today for evaluation of right wrist pain. She reports sudden onset of discomfort from the wrist radiating into the hand, noticed this afternoon while she was pushing her granddaughters on a swing. Noted some swelling on the volar aspect of the wrist at the distal ulna. Denies previous injury to this wrist. She is right-handed. Denies associated fever/chills, joint or body aches, numbness/tingling, elbow or upper arm pain, color change in fingers, chest pain, shortness of breath, neck or head discomfort. Otherwise that wrist discomfort she is feeling well. Denies history of GI bleed, liver or kidney dysfunction. Related Data Home Medications ?Medication ?Instructions ?Recorded ?Confirmed levalbuterol tartrate 45 2 puff inhalation PRN 05/30/14 04/20/25 mcg/actuation aerosol inhaler (Xopenex HFA) levothyroxine 25 mcg tablet 25 mcg PO DAILY 05/30/14 04/20/25 (Synthroid) aspirin 81 mg tablet,delayed 81 mg PO DAILY 10/25/16 04/20/25 release (Aspir-) atorvastatin 80 mg tablet (Lipitor) 80 mg PO DAILY 10/25/16 04/20/25 nitroglycerin 0.4 mg sublingual 0.4 mg buccal PRN 10/25/16 04/20/25 tablet (Nitrostat) ezetimibe 10 mg tablet 10 mg PO DAILY 01/21/21 04/20/25 latanoprost 0.005 % eye drops 1 drp ophthalmic (eye) HS 01/21/21 04/20/25 alendronate 70 mg tablet 70 mg PO QWEEK 03/01/22 04/20/25 fluticasone fur. 200 mcg-umeclid 1 inh inhalation DAILY #60 blisters 07/26/24 04/20/25 62.5 mcg-vilant 25 mcg inhalat.powder (Trelegy Ellipta) brimonidine 0.2 % eye drops 1 drp ophthalmic (eye) BID 04/20/25 04/20/25 lisinopril 20 mg tablet 20 mg PO DAILY 04/20/25 04/20/25 Previous Rx's ?Medication ?Instructions ?Recorded fluticasone fur. 200 mcg-umeclid 1 inh inhalation DAILY #60 blisters 07/26/24 62.5 mcg-vilant 25 mcg inhalat.powder (Trelegy Ellipta) Allergies Allergy/AdvReac Type Severity Reaction Status Date / Time No Known Allergies Allergy Verified 02/29/24 09:48 General Stated Complaint: Orthopedic FRANKLIN: 3 Exam Narrative Exam Narrative: General Appearance: Normal. Patient is alert and oriented, no acute distress Vital signs: Within normal limits; BP is noted to be elevated. 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 +CMS to fingers. Full painless range of motion to elbow. No pain on palpation of forearm or hand. Extremities: Swelling on ulnar aspect of right wrist. Skin: Warm and dry, no rash. Psychiatric: Normal. Course Vital Signs Vital signs: Vital Signs Temperature 36.6 C 04/20/25 16:44 Pulse 52 L 04/20/25 16:44 Respiratory Rate 16 04/20/25 16:44 Blood Pressure 168/99 H 04/20/25 16:44 Pulse Oximetry 98 04/20/25 16:44 Temperature 36.6 C 04/20/25 16:44 Pulse 52 L 04/20/25 16:44 Respiratory Rate 16 04/20/25 16:44 Blood Pressure 168/99 H 04/20/25 16:44 Pulse Oximetry 98 04/20/25 16:44 Oxygen Delivery Method Room Air 04/20/25 16:44 Oxygen Flow Rate 0 04/20/25 16:44 Pain Level 6 04/20/25 16:44 Medical Decision Making Initial Assessment: 70-year-old female with right hand and wrist pain, nontraumatic. No family history of rheumatologic disease Differential Diagnosis includes but is not limited to: Ganglion cyst, tendinitis, muscle strain, bone spur, osteoarthritis. No red flags concerning for septic joint or tickborne illness based on lack of other symptoms and reassuring physical exam. ED Course: - X-ray ordered. - Ice pack applied and Tylenol given for discomfort. - Ian bandage provided for comfort as needed Final Assessment: X-ray to rule out bony involvement, ice pack applied, Tylenol and ibuprofen for pain. Clinical Impression: -Right wrist pain Disposition: - Discharge home, no bony involvement or systemic illness/infection suspected, return if symptoms worsen or new symptoms develop. Follow-Up: - Primary care for further evaluation. Reviewed discharge instructions with patient, including symptomatic management, red flags indicate need for return to emergency care, and follow-up with PCP. Patient Education: - Use of ice packs and btvo-joa-dantaut pain medications. Patient consented to the use of [facility] Imaging Data Radiologic Study: Radiologist's impression: Exam(s) XR WRIST RT COMPLETE EXAM: XR WRIST RT COMPLETE CLINICAL HISTORY: pain and swelling to volar aspect of wrist,. TECHNIQUE: 2D digital imaging was performed of the right wrist. Three views were obtained. PA, lateral and oblique views were obtained. COMPARISON: No exams were available for comparison FINDINGS: BONES: No acute fracture is present. No bony destructive lesion is seen. JOINTS: The carpal bones are normally aligned. There are mild degenerative changes seen at the 1st CMC joint. The articular surfaces are otherwise well maintained. SOFT TISSUE: Normal. IMPRESSION: There is no acute fracture or dislocation. PFSH All Active Problems (Updated 04/20/25 @ 18:24 by Cathleen Panchal) Elevated blood pressure reading (Acute) Right wrist pain (Acute) Chronic cough (Acute) Laryngospasm (Acute) Vocal cord dysfunction (Acute) Asthma (Chronic) Nuclear sclerotic cataract of right eye (Acute) Cortical cataract of right eye (Acute) Medical History (Updated 04/20/25 @ 18:24 by Cathleen Panchal) Laryngopharyngeal reflux (LPR) Hydronephrosis, left HTN (hypertension) Recurrent nephrolithiasis Hypothyroidism Coronary artery disease f/u with cardiology regularly 10/2020 last visit Controlled moderate persistent allergic asthma Glaucoma Urinary frequency Allergic asthma with acute exacerbation Surgical History Hx of cataract surgery Kidney Stone Extraction Coronary Stent 2014 Colonoscopy - IV Sedation (12/21/16) Family History Father , age 49 Myocardial infarction Brother , age 45 Cancer liver cancer. Social History Smoking/Tobacco Use Status: Former Tobacco Use Quit Date: 09/12/84 Tobacco: How many years used: 15 Smoking risk assessment performed?: Yes Alcohol Intake: current Alcohol Intake frequency: holidays/special occasions only Drug use: Never Substance use type: does not use Housing: house Do you feel safe at home: Yes Do you feel safe in your relationship?: Yes
[2025-04-20] MEDS: Acetaminophen 325 MG TAB 650 MG PO (17:16)
[2025-04-20 17:40] VITALS: BP 142/100
== END 2025-04-20 18:32 | disposition home or self-care (01) ==
PROVIDERS: Emergency Provider Nurse Practitioner Family; PCP Physician Assistant
DX: M25.531 Pain in right wrist (principal); R03.0 Elevated blood-pressure reading, without diagnosis of hypertension
CPT/HCPCS: 99283 ×2; 73110